=== PATIENT | female | born 1945 | race American Indian/Alaskan Native ===

== ENCOUNTER 2016-05-25 09:12 | Outpatient (CLI) | payer MEDICARE ==
--- NOTE | 2016-05-25 10:19 | Mammography Report ---
BILATERAL MAMMOGRAM: FINDINGS: There are scattered fibroglandular densities (approximately 25%-50% glandular). No mass, distortion, suspicious calcification, or skin change is seen. There are no significant changes when compared to her prior exams in 2012 and 2013. CAD was utilized. IMPRESSION: Negative mammogram. There is no mammographic evidence of malignancy. RECOMMENDATION: Follow-up per ACS guidelines. BI-RADS CATEGORY: 1 = Negative ACR BI-RADS MAMMOGRAPHIC CODES: 0 = Needs additional imaging evaluation; 1 = Negative; 2 = Benign; 3 = Probably benign; 4 = Suspicious; 5 = Malignant; 6 = Known biopsy-proven malignancy COMMENT: 1. Dense breast tissue, i.e., adenosis, fibrocystic changes, etc., may obscure an underlying neoplasm. 2. Approximately 10% of cancers are not detected with mammography. 3. A negative mammography report should not delay biopsy if a clinically suspicious mass is present. COMMENT: Patient follow-up letters are generated in [id number] ([email or web address]).
== END 2016-05-25 09:13 | disposition home or self-care (01) ==
LOC: SPVWC 09:12
PROVIDERS: ATTEND Internal Medicine
DX: Z12.31 Encounter for screening mammogram for malignant neoplasm of breast (principal)
CPT/HCPCS: 77067; G0202

== ENCOUNTER 2016-08-19 08:08 | Outpatient (CLI) | payer MEDICARE ==
--- NOTE | 2016-08-19 13:29 | Cat Scan Report ---
CT CHEST, ABDOMEN AND PELVIS WITH CONTRAST: 08/19/16 08:08:00 CLINICAL: Abnormal weight loss. Abdominal pain. COMPARISON: CT abdomen and pelvis 12/05/[address] chest 02/18/09. TECHNIQUE: Volumetric acquisition and 1.25 millimeter scan reconstructions after the uneventful intravenous injection of 100 cc of Omnipaque 300. Consent was obtained prior to the administration of the contrast. Oral contrast was also given. FINDINGS: Chest: Mediastinal and left hilar lymphadenopathy. The largest lymph nodes are in the left hilum and the 2 largest measure 2.3 x 1.9 cm and 2.4 x 1.5 cm. A superior mediastinal lymph node measures 2.6 x 1.5 cm and is located between the subclavian arteries. A pretracheal lymph node measures 1.5 x 1.6 cm in the upper mediastinum. The lungs are clear. No pulmonary nodule or mass. No airspace disease or pleural effusion. Normal heart and pulmonary arteries. Fusiform aneurysm of the ascending aorta measures 3.8 x 3.7 cm. Mild ectasia and calcification of the descending thoracic aorta which measures 2.9 x 2.7 cm. No supraclavicular or axillary lymphadenopathy. Normal esophagus and trachea. Small hiatal hernia. No breast or chest wall mass. A biopsy clip versus benign calcification in the outer left breast. Abdomen: Normal liver and bile ducts. A few tiny calculi layer dependently in the gallbladder. Normal gallbladder wall thickness and no pericholecystic fluid. Normal stomach, pancreas and spleen. A duodenal diverticulum appears to arise from either the second or third portion of the duodenum and measures 3.3 x 2.6 x 4.0 cm. It contains air, secretions and oral contrast. It is unchanged compared to the prior CT. Aortic tortuosity and calcification. The inferior vena cava is normal. Normal adrenal glands. Bilateral benign renal cysts. The largest is in the midportion of the right kidney and measures 4.2 cm. The renal collecting systems and ureters are normal. No abdominal lymphadenopathy.No ascites.Normal small bowel. Normal ascending, transverse and descending colon. An appendix is not identified. Pelvis: Normal urinary bladder and rectum.Absence of uterus and normal vaginal cuff. Ovaries are not identified. No adnexal mass or free fluid. Mild sigmoid diverticulosis but no diverticulitis. Bone windows demonstrate no suspicious bone lesion. IMPRESSION:1. Left hilar and mediastinal lymphadenopathy of uncertain etiology. 2. 3.9 cm fusiform aneurysm of the ascending aorta. 3. Cholelithiasis but no acute cholecystitis. 4. Small hiatal hernia. 5. A duodenal diverticulum. 6. Bilateral non-renal cysts. 7. Status post hysterectomy and appendectomy. 8. Mild sigmoid diverticulosis but no diverticulitis.
== END 2016-08-19 08:09 | disposition home or self-care (01) ==
LOC: SPVIMAG 08:08
PROVIDERS: ATTEND Internal Medicine
DX: N28.1 Cyst of kidney, acquired (principal); K80.20 Calculus of gallbladder without cholecystitis without obstruction; K57.10 Diverticulosis of small intestine without perforation or abscess without bleeding; K57.30 Diverticulosis of large intestine without perforation or abscess without bleeding; K44.9 Diaphragmatic hernia without obstruction or gangrene; R63.4 Abnormal weight loss; R59.1 Generalized enlarged lymph nodes; I70.0 Atherosclerosis of aorta; I71.9 Aortic aneurysm of unspecified site, without rupture; Q25.46 Tortuous aortic arch; I10 Essential (primary) hypertension; E78.5 Hyperlipidemia, unspecified; D62 Acute posthemorrhagic anemia; Z90.89 Acquired absence of other organs; Z90.710 Acquired absence of both cervix and uterus
CPT/HCPCS: 71260; 74177; Q9967